=== PATIENT | male | born 1955 | race Caucasian/White ===

== ENCOUNTER 2023-01-07 23:10 | Inpatient (IN) | payer MEDICARE ==
[2023-01-08 00:30] LABS: SARS-CoV-2 NAA Rapid Test DETECTED (NotDetected)
[2023-01-08] MEDS ORDERED: Ondansetron ODT 4 MG TAB ONE (01:05)
[2023-01-08 01:36] LABS: #Monocytes 1.1 10x3/uL (0.0-1.1); #Neutrophils 4.5 10x3/uL (1.5-8.4); %Basophils 0.6 % (0.0-2.0); %Eosinophils 0.2 % (0.0-6.0); %Lymphocytes 13.8 % (18.0-47.0); %Monocytes 17.1 % (0.0-10.0); %Neutrophils 67.8 % (40.0-75.0); Hematocrit 51.8 % (38.8-50.0); Mean Corpuscular HGB CONC 34.7 g/dL (32.0-36.0); Mean Corpuscular Volume 89.3 fl (81.2-95.1); Platelet Count 151 10x3/uL (150-450); RBC Distribution Width 12.9 % (11.5-14.5); White Blood Cell (WBC) Count 6.7 10x3/uL (3.5-10.5)
[2023-01-08 01:50] LABS: ALT (SGPT) 25 U/L (8-55); AST (SGOT) 18 U/L (5-34); Albumin 4.3 g/dL (3.4-4.8); Alkaline Phosphatase 77 U/L (40-110); Anion Gap 17 mmol/L (10-20); BUN (Urea Nitrogen) 12 mg/dL (8.4-25.7); Bilirubin, Total 1.8 mg/dL (0.2-1.2); Calc. Creatinine Clearance 0 mL/min (70-130); Calcium 9.5 mg/dL (7.8-10.44); Carbon Dioxide 22 mmol/L (23-31); Chloride 103 mmol/L (98-107); Estimated GFR 88; Globulin 2.9 g/dL (2.4-3.5); Glucose 221 mg/dL (80-115); Lipase 21 U/L (8-78); Protein, Total 7.2 g/dL (5.8-8.1); Sodium 138 mmol/L (136-145)
[2023-01-08] MEDS ORDERED: Ondansetron PF 4 MG/2 ML Vial ONE (03:59)
[2023-01-08] MEDS ORDERED: Acetaminophen 325 MG TAB PO PRN (05:22)
[2023-01-08] MEDS ORDERED: Calcium Carbonate 500 MG ChewTAB PO PRN (05:22)
[2023-01-08] MEDS ORDERED: Dextrose 50% Abboject 50 ML SYRINGE SLOW IVP PRN (05:22)
[2023-01-08] MEDS ORDERED: HYDROcodone/Acetaminophen 5/325 mg Tablet PO PRN (05:22)
[2023-01-08] MEDS ORDERED: Guaifenesin DM 100-10/5 ML UDCUP PO PRN (05:22)
[2023-01-08] MEDS ORDERED: Dextrose 5% in Water 1,000 ML IV PRN (05:22)
[2023-01-08] MEDS ORDERED: Ondansetron PF 4 MG/2 ML Vial IVP PRN (05:22)
[2023-01-08] MEDS ORDERED: Glucagon 1 MG/ML KIT IM PRN (05:22)
[2023-01-08] MEDS ORDERED: Dexamethasone 10 MG/ML VIAL ONE (05:26)
[2023-01-08] MEDS ORDERED: traZODone HCl 50 MG TAB PO PRN (05:29)
[2023-01-08] MEDS ORDERED: Lactated Ringer's 500 ML IV SCH (05:30)
[2023-01-08 05:43] LABS: Bilirubin Neg (Negative); Blood, Urine 10 (Negative); Clarity Clear (Clear); Glucose, Urine (Dipstick) >=1000 mg/dL (Negative); Ketone, Urine 50 mg/dL (Negative); Leukocyte Negative (Negative); Nitrite Negative (Negative); Protein, Urine (Dipstick) 30 mg/dl (Neg-Trace)
[2023-01-08 05:57] LABS: Bacteria/HPF Rare-Few HPF (None Seen); CAUTI Indications for Culture Fever or rigors; Mucous/LPF Rare LPF (<2+); RBC/HPF 0-3 HPF (0-3); WBC/HPF 0-3 HPF (0-3)
[2023-01-08 05:58] LABS: Urine Culture Reflex No No
[2023-01-08 06:02] LABS: Lactic Acid 1.1 mmol/L (0.5-2.2)
[2023-01-08] MEDS ORDERED: Communication Order-Pharmacy FS PRN (07:37)
[2023-01-08] MEDS ORDERED: Zinc Gluconate 50 MG TAB PO SCH (09:00)
[2023-01-08] MEDS ORDERED: Doxazosin 2 MG TAB PO SCH (09:00)
[2023-01-08] MEDS: Losartan 25 MG TAB PO SCH (12:51)
[2023-01-08] MEDS: Benzonatate 100 MG CAP PO SCH ×3 (12:51→20:53)
[2023-01-08] MEDS: Ascorbic Acid 500 mg Chewable Tablet PO SCH (12:51)
[2023-01-08] MEDS: Amlodipine 5 MG TAB PO SCH (12:51)
[2023-01-08] MEDS: Aspirin 81 mg Enteric Coated Tablet PO SCH (12:51)
[2023-01-08] MEDS: Pantoprazole 40 MG VIAL IVP SCH (12:52)
[2023-01-08] MEDS: glipiZIDE 5 MG TAB PO SCH ×2 (12:52→16:52)
[2023-01-08] MEDS ORDERED: REMDESIVIR 200 MG in Sodium Chloride 0.9% 250 ML 210 ML IV SCH (14:00)
[2023-01-08 15:57] VITALS: BMI 40.6
[2023-01-08] MEDS: HumaLOG 300 UNITS/3 ML VIAL SC PRN ×2 (16:52→21:00)
[2023-01-08] MEDS: Atorvastatin Calcium 10 MG TAB PO SCH (20:53)
[2023-01-09 04:41] LABS: #Eosinphils 0.1 10x3/uL (0.0-0.5); #Monocytes 1.1 10x3/uL (0.0-1.1); #Neutrophils 4.9 10x3/uL (1.5-8.4); %Basophils 0.2 % (0.0-2.0); %Eosinophils 1.7 % (0.0-6.0); %Monocytes 13.3 % (0.0-10.0); %Neutrophils 60.4 % (40.0-75.0); Hematocrit 45.3 % (38.8-50.0); Mean Corpuscular HGB CONC 35.3 g/dL (32.0-36.0); Mean Corpuscular Hemoglobin 31.7 pg (27.0-33.0); Mean Corpuscular Volume 89.9 fl (81.2-95.1); Mean Platelet Volume 10.3 fl (7.4-10.4); Platelet Count 144 10x3/uL (150-450); RBC Distribution Width 12.9 % (11.5-14.5); Red Blood Cell (RBC) Count 5.04 10x6/uL (4.32-5.72); White Blood Cell (WBC) Count 8.1 10x3/uL (3.5-10.5)
[2023-01-09 04:42] LABS: ALT (SGPT) 18 U/L (8-55); AST (SGOT) 16 U/L (5-34); Albumin 3.5 g/dL (3.4-4.8); Alkaline Phosphatase 62 U/L (40-110); Anion Gap 13 mmol/L (10-20); BUN (Urea Nitrogen) 17 mg/dL (8.4-25.7); Bilirubin, Total 1.1 mg/dL (0.2-1.2); Calc. Creatinine Clearance 159 mL/min (70-130); Calcium 8.2 mg/dL (7.8-10.44); Carbon Dioxide 22 mmol/L (23-31); Chloride 103 mmol/L (98-107); Estimated GFR 95; Globulin 2.1 g/dL (2.4-3.5); Glucose 128 mg/dL (80-115); Potassium 3.6 mmol/L (3.5-5.1); Protein, Total 5.6 g/dL (5.8-8.1); Sodium 134 mmol/L (136-145)
[2023-01-09 04:43] LABS: ALT (SGPT) 18 U/L (8-55); AST (SGOT) 15 U/L (5-34); Albumin 3.5 g/dL (3.4-4.8); Alkaline Phosphatase 61 U/L (40-110); Bilirubin, Direct 0.4 mg/dL (0.1-0.3); Bilirubin, Total 1.1 mg/dL (0.2-1.2); Protein, Total 5.8 g/dL (5.8-8.1)
[2023-01-09] MEDS: Dexamethasone 4 mg/ml Vial SLOW IVP SCH (05:40)
[2023-01-09] MEDS: Amlodipine 5 MG TAB PO SCH (08:56)
[2023-01-09] MEDS: glipiZIDE 5 MG TAB PO SCH ×2 (08:56→18:19)
[2023-01-09] MEDS: Ascorbic Acid 500 mg Chewable Tablet PO SCH (08:56)
[2023-01-09] MEDS: Doxazosin 2 MG TAB PO SCH (08:56)
[2023-01-09] MEDS: Aspirin 81 mg Enteric Coated Tablet PO SCH (08:56)
[2023-01-09] MEDS: Losartan 25 MG TAB PO SCH (08:56)
[2023-01-09] MEDS: Benzonatate 100 MG CAP PO SCH ×3 (08:56→20:19)
[2023-01-09] MEDS: Pantoprazole 40 MG VIAL IVP SCH (08:57)
[2023-01-09] MEDS: HumaLOG 300 UNITS/3 ML VIAL SC PRN ×2 (12:50→20:22)
[2023-01-09] MEDS: REMDESIVIR 100 MG in Sodium Chloride 0.9% 250 ML 230 ML IV SCH (15:05)
[2023-01-09] MEDS: metFORMIN 500 MG TAB PO SCH (18:19)
[2023-01-09] MEDS: Atorvastatin Calcium 10 MG TAB PO SCH (20:19)
[2023-01-10 03:46] LABS: ALT (SGPT) 18 U/L (8-55); AST (SGOT) 13 U/L (5-34); Albumin 3.4 g/dL (3.4-4.8); Alkaline Phosphatase 58 U/L (40-110); Bilirubin, Direct 0.4 mg/dL (0.1-0.3); Bilirubin, Total 0.9 mg/dL (0.2-1.2); Protein, Total 5.7 g/dL (5.8-8.1)
[2023-01-10] MEDS: Dexamethasone 4 mg/ml Vial SLOW IVP SCH (05:43)
[2023-01-10] MEDS: glipiZIDE 5 MG TAB PO SCH ×2 (09:32→16:11)
[2023-01-10] MEDS: Amlodipine 5 MG TAB PO SCH (09:32)
[2023-01-10] MEDS: Benzonatate 100 MG CAP PO SCH ×3 (09:32→21:41)
[2023-01-10] MEDS: metFORMIN 500 MG TAB PO SCH ×2 (09:33→16:11)
[2023-01-10] MEDS: Ascorbic Acid 500 mg Chewable Tablet PO SCH (09:33)
[2023-01-10] MEDS: Aspirin 81 mg Enteric Coated Tablet PO SCH (09:33)
[2023-01-10] MEDS: Hydrochlorothiazide 25 MG TAB PO SCH (09:33)
[2023-01-10] MEDS: Losartan 25 MG TAB PO SCH (09:33)
[2023-01-10] MEDS: HumaLOG 300 UNITS/3 ML VIAL SC PRN ×2 (09:34→12:43)
[2023-01-10] MEDS: Doxazosin 2 MG TAB PO SCH (09:34)
[2023-01-10] MEDS: REMDESIVIR 100 MG in Sodium Chloride 0.9% 250 ML 230 ML IV SCH (16:11)
[2023-01-10] MEDS: Atorvastatin Calcium 10 MG TAB PO SCH (21:41)
[2023-01-11 04:45] LABS: ALT (SGPT) 21 U/L (8-55); AST (SGOT) 14 U/L (5-34); Albumin 3.6 g/dL (3.4-4.8); Alkaline Phosphatase 57 U/L (40-110); Bilirubin, Direct 0.4 mg/dL (0.1-0.3); Bilirubin, Total 1.1 mg/dL (0.2-1.2)
[2023-01-11] MEDS: Dexamethasone 4 mg/ml Vial SLOW IVP SCH (06:34)
[2023-01-11] MEDS: Hydrochlorothiazide 25 MG TAB PO SCH (09:11)
[2023-01-11] MEDS: Aspirin 81 mg Enteric Coated Tablet PO SCH (09:12)
[2023-01-11] MEDS: Losartan 25 MG TAB PO SCH (09:12)
[2023-01-11] MEDS: Benzonatate 100 MG CAP PO SCH ×3 (09:12→20:51)
[2023-01-11] MEDS: Amlodipine 5 MG TAB PO SCH (09:12)
[2023-01-11] MEDS: Ascorbic Acid 500 mg Chewable Tablet PO SCH (09:12)
[2023-01-11] MEDS: metFORMIN 500 MG TAB PO SCH ×2 (09:12→15:21)
[2023-01-11] MEDS: Doxazosin 2 MG TAB PO SCH (09:12)
[2023-01-11] MEDS: glipiZIDE 5 MG TAB PO SCH ×2 (09:13→15:21)
[2023-01-11] MEDS: HumaLOG 300 UNITS/3 ML VIAL SC PRN ×2 (13:14→17:00)
[2023-01-11] MEDS: REMDESIVIR 100 MG in Sodium Chloride 0.9% 250 ML 230 ML IV SCH (15:20)
[2023-01-11] MEDS: Atorvastatin Calcium 10 MG TAB PO SCH (20:51)
[2023-01-12 04:49] LABS: ALT (SGPT) 26 U/L (8-55); AST (SGOT) 19 U/L (5-34); Albumin 3.6 g/dL (3.4-4.8); Alkaline Phosphatase 56 U/L (40-110); Bilirubin, Direct 0.4 mg/dL (0.1-0.3); Bilirubin, Total 1.1 mg/dL (0.2-1.2); Protein, Total 6.2 g/dL (5.8-8.1)
[2023-01-12] MEDS ORDERED: Dexamethasone 4 MG TAB PO SCH (08:00)
[2023-01-12] MEDS: Amlodipine 5 MG TAB PO SCH (08:18)
[2023-01-12] MEDS: Hydrochlorothiazide 25 MG TAB PO SCH (08:18)
[2023-01-12] MEDS: Benzonatate 100 MG CAP PO SCH (08:18)
[2023-01-12] MEDS: Ascorbic Acid 500 mg Chewable Tablet PO SCH (08:18)
[2023-01-12] MEDS: Aspirin 81 mg Enteric Coated Tablet PO SCH (08:18)
[2023-01-12] MEDS: glipiZIDE 5 MG TAB PO SCH (08:18)
[2023-01-12] MEDS: metFORMIN 500 MG TAB PO SCH (08:18)
[2023-01-12] MEDS: Doxazosin 2 MG TAB PO SCH (08:19)
[2023-01-12] MEDS: Losartan 25 MG TAB PO SCH (08:19)
[2023-01-12] MEDS: REMDESIVIR 100 MG in Sodium Chloride 0.9% 250 ML 230 ML IV SCH (12:31)
[2023-01-12] MEDS: HumaLOG 300 UNITS/3 ML VIAL SC PRN (12:37)
[2023-01-12 12:39] VITALS: BP 146/71; TEMP 98.4
== END 2023-01-12 16:18 | disposition home or self-care (01) | DRG 177 ==
LOC: CSHERS 23:10 → OBSVTOIN 01-08 05:22 → CSHTELE 01-08 05:22 → UNDOADMOB 01-08 06:39 → CSHTELE 01-08 06:39
PROVIDERS: ADMIT Student in an Organized Health Care Education/Training Program; ATTEND Internal Medicine
PROC: 8E0ZXY6 Isolation (ICD-10-PCS; principal; 2023-01-08)
PROC: XW033E5 Introduction of Remdesivir Anti-infective into Peripheral Vein, Percutaneous Approach, New Technology Group 5 (ICD-10-PCS; 2023-01-08)
DX: U07.1 COVID-19 (principal); J96.01 Acute respiratory failure with hypoxia; J90 Pleural effusion, not elsewhere classified; Z68.41 Body mass index [BMI] 40.0-44.9, adult; E11.9 Type 2 diabetes mellitus without complications; I10 Essential (primary) hypertension; Z96.641 Presence of right artificial hip joint; E86.0 Dehydration; E66.01 Morbid (severe) obesity due to excess calories; G47.33 Obstructive sleep apnea (adult) (pediatric); N40.0 Benign prostatic hyperplasia without lower urinary tract symptoms; K21.9 Gastro-esophageal reflux disease without esophagitis; Z79.899 Other long term (current) drug therapy; Z79.84 Long term (current) use of oral hypoglycemic drugs; Z79.82 Long term (current) use of aspirin; E78.00 Pure hypercholesterolemia, unspecified
CPT/HCPCS: 36415; 36416; 71260; 74177; 80053; 80076; 81001; 82010; 83605; 83690; 85025; 85379; 86140; 94760; C9113; J0248; J1100; J1650; J1815; J2405; J7050; J7120; J8540; Q0162